=== PATIENT | male | born 1965 | race Caucasian/White ===

== ENCOUNTER 2022-05-22 15:14 | Emergency (ER) | payer OTHER ==
[~2022-05-22] VITALS: Ht 160 cm; Wt 81.8 kg
[2022-05-22 15:19] VITALS: BP 159/84
[2022-05-22] MEDS ORDERED: BACITRACIN 28 GM OINTMENT TP ONE (16:00)
[2022-05-22] MEDS ORDERED: DOXYCYCLINE HYCLATE 100 MG TABLET PO ONE (16:00)
[2022-05-22] MEDS ORDERED: CLIN-26 PO (16:17)
== END 2022-05-22 16:30 | disposition home or self-care (01) ==
LOC: EMS 15:14
DX: L03.115 Cellulitis of right lower limb (principal)
CPT/HCPCS: 99283